=== PATIENT | female | born 1950 | race Caucasian/White ===

== ENCOUNTER 2019-02-20 03:00 | Emergency (ER) | payer MEDICARE, OTHER ==
[~2019-02-20] VITALS: Ht 177.8 cm; Wt 96.2 kg
[2019-02-20 03:12] VITALS: BP 116/68
== END 2019-02-20 07:27 | disposition home or self-care (01) ==
LOC: EDBD 03:00 → ER 03:31
DX: S83.91XA Sprain of unspecified site of right knee, initial encounter (principal); F17.210 Nicotine dependence, cigarettes, uncomplicated; W19.XXXA Unspecified fall, initial encounter; Y93.89 Activity, other specified; Y99.8 Other external cause status; Y92.89 Other specified places as the place of occurrence of the external cause
CPT/HCPCS: 29505; 73560

== ENCOUNTER 2019-04-08 13:05 | Inpatient (IN) | payer MEDICARE ==
[~2019-04-08] VITALS: Ht 172.7 cm; Wt 84.8 kg
[2019-04-08] MEDS ORDERED: ENOXAPARIN SOD 80 MG/0.8ML SYRINGE SC ONE (15:15)
[2019-04-08 15:20] LABS: Basophils # (auto) 0.1 uL; Basophils % (auto) 1.1 % (0.0-2.0); Eosinophils # (auto) 0.1 uL; Eosinophils % (auto) 1.1 % (0.0-7.0); Hematocrit 41.6 % (36.0-46.0); Hemoglobin 13.8 g/dL (12.2-16.2); Lymphocytes # (auto) 2.8 uL; Lymphocytes % (auto) 27.2 % (10.0-50.0); Mean Corpuscular Hemoglobin 30.2 pg (28.0-32.0); Mean Corpuscular Hgb Conc. 33.1 g/dL (32.0-36.0); Mean Corpuscular Volume 91.2 fL (80.0-100.0); Monocytes % (auto) 9.7 % (0.0-12.0); Neutrophils # (auto) 6.4 uL; Neutrophils % (auto) 60.9 % (37.0-80.0); Nucleated Red Blood Cells % 0.1 %; Platelet Count (auto) 329 10^3/uL (140-450); Red Blood Cells 4.56 10^6/uL (4.0-5.20); Red Cell Distribution Width 13.6 % (11.8-14.3); White Blood Cell 10.5 10^3/uL (4.4-10.8)
[2019-04-08 15:35] LABS: INR 1.26 (0.9-1.15); Partial Thromboplastin Time 25.1 sec (23.64-32.05)
[2019-04-08 15:49] LABS: Anion Gap 7 (5-15); Blood Urea Nitrogen 19 mg/dL (7-18); Calcium 9.1 mg/dL (8.5-10.1); Carbon Dioxide 27 mmol/L (21-32); Chloride 108 mmol/L (98-107); Glucose 108 mg/dL (74-106); Potassium 3.7 mmol/L (3.5-5.1); Sodium 142 mmol/L (136-145)
[2019-04-08 15:51] LABS: Alanine Aminotransferase 21 U/L (13-56); Alkaline Phosphatase 72 U/L (45-117); Aspartate Aminotransferase 14 U/L (15-37); BUN/Creatinine Ratio 17.8; Bilirubin, Total 0.3 mg/dL (0.2-1.0); GFR African American 66 mL/min; GFR Non-African American 55 mL/min; Total Protein 7.1 g/dL (6.4-8.2)
[2019-04-08] MEDS ORDERED: IOHEXOL 350 MG/ML 100ML IJ ONE (16:10)
[2019-04-08] MEDS ORDERED: IPRATROPIUM BROM 0.5 MG/2.5ML INH SOL NEB PRN (16:15)
[2019-04-08] MEDS ORDERED: ONDANSETRON HCL 4 MG/2 ML VIAL IV PRN (16:15)
[2019-04-08] MEDS ORDERED: DOCUSATE SOD 100 MG CAP PO PRN (16:15)
[2019-04-08] MEDS ORDERED: SODIUM CHLORIDE 0.9% 250 ML IV ONE (16:15)
[2019-04-08] MEDS ORDERED: ALBUTEROL SULF 2.5 MG/0.5ML(0.5%) NEB SOLN NEB PRN (16:15)
[2019-04-08] MEDS ORDERED: ACETAMINOPHEN 500 MG TAB PO PRN (16:15)
[2019-04-08] MEDS ORDERED: NITROGLYCERIN 0.4 MG SL TAB SL PRN (16:15)
[2019-04-08] MEDS ORDERED: HYDROcodone-ACET 5/325MG TAB PO PRN (16:15)
[2019-04-08] MEDS ORDERED: ALPRAZolam 0.25 MG TAB PO PRN (16:15)
[2019-04-08] MEDS ORDERED: MORPHINE SULF INJ 2 MG/ML SYRINGE 1ML IV PRN ×2 (16:15)
[2019-04-08 16:27] VITALS: BP 114/50
[2019-04-08] MEDS: SODIUM CHLORIDE 0.9% 1,000 ML IV SCH (17:02)
--- NOTE | 2019-04-08 21:35 | NUR ---
PT ASSESSED FOR PRN TX. TX IS NOT INDICATED AT THIS TIME. PT IS RESTING WITH NO ACUTE DISTRESS NOTED. PT IS AWARE TO PAGE IF SHE BECOMES SOB. HR 77 95% ON ROOM AIR. RR 18 B/S CLEAR BUT DECREASED THROUGHOUT.
[2019-04-09] MEDS: SODIUM CHLORIDE 0.9% 1,000 ML IV SCH ×3 (02:15→22:15)
[2019-04-09 05:47] LABS: Basophils # (auto) 0.1 uL; Basophils % (auto) 1.2 % (0.0-2.0); Eosinophils # (auto) 0.2 uL; Eosinophils % (auto) 1.9 % (0.0-7.0); Hematocrit 40.3 % (36.0-46.0); Hemoglobin 13.1 g/dL (12.2-16.2); Lymphocytes % (auto) 28.9 % (10.0-50.0); Mean Corpuscular Hemoglobin 29.8 pg (28.0-32.0); Mean Corpuscular Hgb Conc. 32.5 g/dL (32.0-36.0); Mean Corpuscular Volume 91.5 fL (80.0-100.0); Monocytes # (auto) 0.9 uL; Monocytes % (auto) 8.3 % (0.0-12.0); Neutrophils # (auto) 6.2 uL; Neutrophils % (auto) 59.7 % (37.0-80.0); Nucleated Red Blood Cells % 0.2 %; Platelet Count (auto) 284 10^3/uL (140-450); Red Cell Distribution Width 13.4 % (11.8-14.3); White Blood Cell 10.4 10^3/uL (4.4-10.8)
[2019-04-09 06:04] LABS: Calcium 8.5 mg/dL (8.5-10.1); INR 1.27 (0.9-1.15); Partial Thromboplastin Time 27.2 sec (23.64-32.05)
[2019-04-09 06:22] LABS: BUN/Creatinine Ratio 14.3
--- NOTE | 2019-04-09 06:34 | NUR ---
PT ASSESSED FOR PRN HHN TX. PT IS ON ROOM AIR, SPO2 90%, HR 71, RR 18. PT AWARE OF BREATHING TX AVAILABLE TO HER IF INDICATED. WILL CONTINUE TO MONITOR.
[2019-04-09] MEDS: FAMOTIDINE 20 MG TAB PO SCH (10:02)
[2019-04-09] MEDS: ENOXAPARIN SOD 100 MG/1 ML SYRINGE SC SCH ×2 (10:02→22:27)
[2019-04-09 17:00] VITALS: BP 131/62
--- NOTE | 2019-04-09 17:00 | NUR ---
Patient in room 266. Patient on the monitor, VS WNL. Patient A&Ox4. Admission packet to be done. Will continue to monitor.
--- NOTE | 2019-04-09 17:30 | NUR ---
Dr. Talavera in [place] to see another patient. Dr. Talavera told about pulmonary consult for patient Tanja Banks. Dr. Talavera states "I'll get to it eventually."
--- NOTE | 2019-04-09 18:30 | NUR ---
End of shift note: Patient sitting up in bed eating dinner tray independently. Patient A&Ox4. Patient on 2L NC saturation at 96%. Arriaza to gravity. IV 20G right AC running NS at 100ml/hr patent, clean, dry, and intact. No S/S of pain/SOB or distress noted at this time. Bed locked and in the lowest position, side rails up x2, call light with in reach. Report to be given to shift leader RN. Will continue to monitor.
--- NOTE | 2019-04-09 19:30 | NUR ---
OPENING SHIFT RECEIVED REPORT FROM DAY SHIFT RN. ASSUMED CARE OF PATIENT. PATIENT IN BED WATCHING TV WITH NO SIGNS OR SYMPTOMS OF SOB, PAIN OR DISTRESS. CURRENTLY ON 2L 02 NASAL CANNULA, 02 SAT - 96%. UPDATED PATIENT ON PLAN OF CARE. REPOSITIONED FOR COMFORT. CAZARES HUNG TO GRAVITY ON BED RAIL. RIGHT ANTECUBITAL IV - CLEAN/DRY/INTACT. BED IN LOWEST POSITION, SIDE RAILS UP X2, CALL LIGHT WITHIN REACH. WILL CONTINUE TO MONITOR.
--- NOTE | 2019-04-09 19:50 | NUR ---
DAUGHTER TAZ CALLED AND UPDATED ON PLAN OF CARE.
[2019-04-09 20:00] VITALS: BP 116/56
--- NOTE | 2019-04-09 21:50 | NUR ---
Respiratory note: PT ASSESSED FOR PRN MED NEB TX. HR 74, RR 14, SPO2 96% ON 2L NC. NO SIGNS OF ANY RESPIRATORY DISTRESS NOTED. ADVISED PT TO CALL IF TX IS NEEDED.
--- NOTE | 2019-04-09 23:55 | NUR ---
ROUNDS PATIENT IN BED SLEEPING WITH NO SIGNS OR SYMPTOMS OF SOB, PAIN OR DISTRESS. CURRENTLY ON 2L 02 NASAL CANNULA, 02 SAT - 96%. REPOSITIONED FOR COMFORT. BED IN LOWEST POSITION, SIDE RAILS UP X2, CALL LIGHT WITHIN REACH. WILL CONTINUE TO MONITOR.
[2019-04-10] VITALS: BP 117/50
--- NOTE | 2019-04-10 03:55 | NUR ---
ROUNDS PATIENT IN BED SLEEPING WITH NO SIGNS OR SYMPTOMS OF SOB, PAIN OR DISTRESS. CURRENTLY ON 2L 02 NASAL CANNULA, 02 SAT - 97%. REPOSITIONED FOR COMFORT. BED IN LOWEST POSITION, SIDE RAILS UP X2, CALL LIGHT WITHIN REACH. WILL CONTINUE TO MONITOR.
[2019-04-10 04:00] VITALS: BP 120/64
--- NOTE | 2019-04-10 06:45 | NUR ---
END OF SHIFT PATIENT IN BED SLEEPING WITH NO SIGNS OR SYMPTOMS OF SOB, PAIN OR DISTRESS. CURRENTLY ON 2L 02 NASAL CANNULA, 02 SAT- 98%. RIGHT ANTECUBITAL IV - CLEAN/DRY/INTACT. CAZARES HUNG TO GRAVITY ON BED RAIL. REPOSITIONED FOR COMFORT. BED IN LOWEST POSITION, SIDE RIALS UP X2, CALL LIGHT WITHIN REACH. WILL ENDORSE CARE TO DAY SHIFT RN.
--- NOTE | 2019-04-10 07:08 | NUR ---
PT. ASSESSED FOR PRN. TX. , NO RESP. DISTRESS OR SOB NOTED. PT. IS RESPONSIVE AND AWAKE, PT. DENIES SOB , VITALS HR=58,RR=18,SP02=96% ON 1.5LPM NC. PRN. MN. NOT INDICATED AT THIS TIME, TX. NOT GIVE. PT. IS AWARE SHE MAY CALL FOR TX. IF NEEDED. Addendum: 04/10/19 at 1020 by Nicky Cortes RT Amended: Links added.
--- NOTE | 2019-04-10 07:30 | NUR ---
RECEIVED PATIENT SITING UP IN THE BED, A/O TIMES 4, WHEN NAME IS CALLED, O2 AT 2L BY THE N/C, CAZARES TO GRAVITY, NS INFUSING INTO LAC BY THE IV PUMP, NO COMPLAINTS OF PAIN
[2019-04-10 08:00] VITALS: BP 127/74
--- NOTE | 2019-04-10 08:10 | NUR ---
ORTHO DOCTOR STEVEN NEGRON TO SEE THE PATIENT
--- NOTE | 2019-04-10 08:30 | NUR ---
SAT UP IN THE BED AND ATE HER BREAKFAST NO HELP NEEDED
--- NOTE | 2019-04-10 09:30 | NUR ---
NO CHANGE IN CONDITION, TALKING HER SISTER ON THE PHONE
[2019-04-10] MEDS: ENOXAPARIN SOD 100 MG/1 ML SYRINGE SC SCH ×2 (09:58→10:27)
--- NOTE | 2019-04-10 10:25 | NUR ---
EXPLAIN MEDICATIONS TO THE PATIENT REGARDING THE DOSAGE, USAGE AND THE SIDE EFFECTS, AND MEDICATED ORDERED
[2019-04-10] MEDS: FAMOTIDINE 20 MG TAB PO SCH (10:27)
[2019-04-10] MEDS: SODIUM CHLORIDE 0.9% 1,000 ML IV SCH ×2 (10:30→21:30)
--- NOTE | 2019-04-10 10:30 | NUR ---
DR OLVERA IN TO SEE THE PATIENT
--- NOTE | 2019-04-10 11:00 | NUR ---
SITTING UP IN THE BED WITH EYES CLOSED NO CHANGE IN CONDITION
[2019-04-10 11:45] VITALS: BP 119/62
--- NOTE | 2019-04-10 12:07 | NUR ---
SITTING UP IN THE BED WITH EYES CLOSED APPEAR TO BE SLEEPING
--- NOTE | 2019-04-10 12:31 | NUR ---
WATCHING TV NO COMPLAINTS
--- NOTE | 2019-04-10 12:44 | NUR ---
EATING HER LUNCH NO HELP NEEDED
--- NOTE | 2019-04-10 14:00 | NUR ---
FRIEND IN TO VISIT WITH THE PATIENT
--- NOTE | 2019-04-10 15:35 | NUR ---
FRIEND LEFT AND PATIENT STATES SHE IS COMFORTABLE
--- NOTE | 2019-04-10 15:35 | NUR ---
STATES SHE HAS BEEN TURNING HERSELF IN THE BED WHEN WE ASK IF WE COULD REPOSITION HER AGAIN
[2019-04-10 15:45] VITALS: BP 114/67
--- NOTE | 2019-04-10 16:44 | NUR ---
PATIENT SITTING UP IN THE BED WATCHING TV,
--- NOTE | 2019-04-10 17:30 | NUR ---
eye closed appears to be sleeping
--- NOTE | 2019-04-10 18:30 | NUR ---
SITTING UP IN THE BED EATING HER DINER, A/O TIMES 4, O2 AT 2L BY N/C, CAZARES TO GRAVITY, NS AT 100ML/HR, INFUSING INTO THE RFA BY THE IV PUMP, NO COMPLAINT OF PAIN , MRI WILL BE DONE TOMORROW, WILL CONTINUE TO MONITOR AND GIVE REPORT TO THE NEXT SHIFT
--- NOTE | 2019-04-10 19:08 | NUR ---
PRN MED NEB ASSESSMENT. NO DISTRESS NOTED AT THIS TIME. PT DENIES SOB AT THIS TIME. HR 88 RR 20 POX 96% ON 2L NC. TX NOT GIVEN.
--- NOTE | 2019-04-10 19:27 | NUR ---
OPENING SHIFT RECEIVED REPORT FROM DAY SHIFT RN. ASSUMED CARE OF PATIENT. PATIENT IN BED WATCHING TV WITH NO SIGNS OR SYMPTOMS OF SOB, PAIN OR DISTRESS. CURRENTLY ON 2L 02 NASAL CANNULA, 02 SAT - 97%. UPDATED PATIENT ON PLAN OF CARE. REPOSITIONED FOR COMFORT. CAZARES HUNG TO GRAVITY ON BED RAIL. RIGHT ANTECUBITAL IV - CLEAN/DRY/INTACT. BED IN LOWEST POSITION, SIDE RAILS UP X2, CALL LIGHT WITHIN REACH. WILL CONTINUE TO MONITOR.
[2019-04-10 19:45] VITALS: BP 106/59
[2019-04-10] MEDS: APIXABAN 5 MG TAB PO SCH (21:36)
[2019-04-11] VITALS (7 sets, daily range): BP systolic 111–135; BP diastolic 58–71
--- NOTE | 2019-04-11 00:25 | NUR ---
ROUNDS PATIENT IN BED SLEEPING WITH NO SIGNS OR SYMPTOMS FO SOB, PAIN OR DISTRESS. CURRENTLY ON 2L 02 NASAL CANNULA, 02 SAT - 98%. REPOSITIONED FOR COMFORT. BED IN LOWEST POSITION, SIDE RAILS UP X2, CALL LIGHT WITHIN REACH.
--- NOTE | 2019-04-11 06:50 | NUR ---
END OF SHIFT PATIENT IN BED SLEEPING WITH NO SIGNS OR SYMPTOMS OF SOB, PAIN OR DISTRESS. CURRENTLY ON 2L 02 NASAL CANNULA, 02 SAT - 97%. CAZARES HUNG TO GRAVITY ON BED RAIL. RIGHT FOREARM IV - CLEAN/DRY/INTACT. REPOSITIONED FOR COMFORT. BED IN LOWEST POSITION, SIDE RAILS UP X2, CALL LIGHT WITHIN REACH. WILL ENDORSE CARE TO DAY SHIFT RN.
--- NOTE | 2019-04-11 07:30 | NUR ---
RECEIVED PATIENT SEMI FOWLERS UP IN THE BED, AWAKEN TO NAME BEING CALLED, O2 AT 1L BY N/C. A/O TIMES 4, NS INFUSING INTO THE LAC AT 100ML/HR BY THE IV PUMP, CAZARES TO GRAVITY, NO COMPLAINTS OF PAIN
--- NOTE | 2019-04-11 08:10 | NUR ---
DR OLVERA IN TO SEE THE PATIENT
--- NOTE | 2019-04-11 08:20 | NUR ---
SITTING UP IN BED EATING HER BREAKFAST
--- NOTE | 2019-04-11 08:33 | NUR ---
PATIENT BEING TRANSFERRED TO [facility] WITH ARVIND GIBSON PLACED ON TELE HC 17
--- NOTE | 2019-04-11 08:45 | NUR ---
REPORT CALLED TO ARVIND GIBSON
--- NOTE | 2019-04-11 09:00 | NUR ---
reviewing charts noted MD OLVERA's communication order, asked social secretary pinky to call in consult she states she will call once the patient arrives to the floor
--- NOTE | 2019-04-11 09:05 | NUR ---
TRANSFERRED TO ROOM 291B WITH ALL BELONGINGS, PER THE PATIENT
--- NOTE | 2019-04-11 09:20 | NUR ---
Opening Patient now in room, no distress, alert and oriented, bed is in lowest position, locked. NS at bedside, will retrieve new pump to start fluids at 100mL as ordered. Will return to give morning medications and physical assessment. Will continue to monitor this patient.
[2019-04-11] MEDS: APIXABAN 5 MG TAB PO SCH ×2 (09:33→22:53)
[2019-04-11] MEDS: FAMOTIDINE 20 MG TAB PO SCH (09:34)
--- NOTE | 2019-04-11 12:30 | NUR ---
new iv insertion noticed swelling the right arm/hand after starting fluids on the floor, discontinued IV patient tolerated well iv catheter intact Inserted a new IV L hand 22 gauge, now running NS at 100 mL as ordered. patient tolerated well, no distress noted at this time
[2019-04-11] MEDS: SODIUM CHLORIDE 0.9% 1,000 ML IV SCH (12:55)
--- NOTE | 2019-04-11 13:05 | NUR ---
bao data collection technician at bedside taking the patient for an MRI now of the L knee, without contrast as ordered
--- NOTE | 2019-04-11 19:29 | NUR ---
OPENING NOTES RECEIVED REPORT FROM DAY SHIFT NURSE. PT IS AWAKE AND ORIENTATED X 4 WITH NO S/S OF DISTRESS NOR PAIN. NO S/S OF SOB. PT IS IN BEDREST AND IS AWARE OF BEDREST. CAZARES CATH IS SECURE, PATENT, DRAINING, AND BELOW BLADDER. BED IS IN LOWEST POSITION AND SIDE RAILS ARE UP X 2. BED BRAKES ARE LOCKED AND CALL LIGHT IS WITH IN REACH. WILL CONTINUE TO MONITOR Q1 HR.
--- NOTE | 2019-04-11 22:11 | NUR ---
Respiratory note: PT SEEN AND ASSESSED FOR PRN MED NEB TX AT 2211. TX NOT INDICATED AT THIS TIME. PT DENIES ANY ISSUES WITH HER BREATHING AND STATES THAT SHE HAS BEEN FEELING FINE. BREATH SOUNDS WERE CLEAR AND DIMINISHED BILATERALLY. HR 84 RR 18 POX 96% ON 3L NASAL CANNULA. PT AWARE TO CALL FOR RT IF ANY DISTRESS DOES OCCUR.
[2019-04-12] MEDS: SODIUM CHLORIDE 0.9% 1,000 ML IV SCH ×2 (00:15→10:04)
[2019-04-12 05:00] VITALS: BP 118/61
--- NOTE | 2019-04-12 07:33 | NUR ---
closing notes endorsed care to day shift nursetarah.
--- NOTE | 2019-04-12 07:40 | NUR ---
Patient in bed asleep, on O2 at 1 LPM, no acute distress noted.
--- NOTE | 2019-04-12 07:41 | NUR ---
PRN [place] TX NOT INDICATED AT THIS TIME. PT ON 1L/MIN VIA NC, 95 % O2 SATS, HR 80 BPM, RR18 BPM. BS ARE CLEAR TO AUSCULTATION. RESPIRATION IS EVEN AND NONLABORED. PT DENIES SOB OR ANY OTHER RESPIRATORY DISTRESS. PT INSTRUCTED TO CALL IF MN TX IS INDICATED.
[2019-04-12 09:00] VITALS: BP 124/66
--- NOTE | 2019-04-12 09:43 | NUR ---
Patient on the phone at this time.
[2019-04-12] MEDS: APIXABAN 5 MG TAB PO SCH (10:04)
[2019-04-12] MEDS: FAMOTIDINE 20 MG TAB PO SCH (10:04)
--- NOTE | 2019-04-12 11:25 | NUR ---
Yvette Carlson at bedside. ordered O2 Saturation on room air, to discharge the patient today, remove the Arriaza catheter.
--- NOTE | 2019-04-12 11:28 | NUR ---
O2 Sat = 93% to 95% on room air. Yvette Carlson is aware.
--- NOTE | 2019-04-12 11:30 | NUR ---
Arriaza catheter removed as ordered. About 1,450 ml of clear, yellowish urine emptied from the Arriaza catheter bag.
[2019-04-12 12:04] VITALS: BP 124/66
[2019-04-12 12:22] VITALS: BP 124/66
--- NOTE | 2019-04-12 13:20 | NUR ---
Bedside commode provided.
--- NOTE | 2019-04-12 13:30 | NUR ---
Patient wanted to go to the bathroom. Patient with a pair of crutches from home, left leg on brace, INSTALLATION TECH assisted the patient to the bathroom.
--- NOTE | 2019-04-12 14:30 | NUR ---
Discharge instructions given as ordered. Encourage to follow up with PMD as instructed. All questions and concerns addressed. Patient verbalized understanding. Medication reconciliation form completed and copy given to patient. IV removed with catheter intact, pressure dressing applied, Arriaza catheter removed. Telemetry unit returned to [facility]. Patient taken to vehicle via wheelchair with all personal belongings (including a pair of crutches, leg brace on left leg), accompanied by staff and family member. No distress noted at time of departure.
== END 2019-04-12 14:30 | disposition home or self-care (01) | DRG 299 ==
LOC: ER 13:07 → TELE 13:08 → DOU IN ICU 04-09 16:19 → TELE-WESTW 04-11 09:14
PROVIDERS: ADMIT Nurse Practitioner Acute Care; ATTEND Family Medicine
DX: I82.402 Acute embolism and thrombosis of unspecified deep veins of left lower extremity (principal); I26.92 Saddle embolus of pulmonary artery without acute cor pulmonale; S82.142A Displaced bicondylar fracture of left tibia, initial encounter for closed fracture; S83.512A Sprain of anterior cruciate ligament of left knee, initial encounter; F17.210 Nicotine dependence, cigarettes, uncomplicated; X58.XXXA Exposure to other specified factors, initial encounter; Y93.89 Activity, other specified; Y92.89 Other specified places as the place of occurrence of the external cause; Y99.8 Other external cause status
CPT/HCPCS: 36415; 51702; 71045; 71275; 73562; 73721; 80048; 80053; 81241; 83880; 84484; 85025; 85610; 85730; 87081; 93306; 93971; 96372; G0378